=== PATIENT | male | born 1975 | race Asian ===

== ENCOUNTER 2023-09-27 21:46 | Emergency (ER) | payer OTHER ==
[~2023-09-27] VITALS: Ht 175.3 cm; Wt 75.0 kg
[2023-09-27 21:51] VITALS: TEMP 98.2
[2023-09-27 22:12] VITALS: RESP 20
[2023-09-28 00:19] VITALS: BP 137/84; PULSE 74
== END 2023-09-28 00:58 | disposition home or self-care (01) ==
LOC: EMS 21:47
DX: I10 Essential (primary) hypertension (principal); E78.00 Pure hypercholesterolemia, unspecified; I49.9 Cardiac arrhythmia, unspecified; Z90.49 Acquired absence of other specified parts of digestive tract
CPT/HCPCS: 70450; 93005; 99284